=== PATIENT | female | born 1995 | race Caucasian/White ===

== ENCOUNTER 2023-09-16 21:21 | Emergency (ER) | payer OTHER, SELFPAY ==
[2023-09-16 21:26] VITALS: BP 106/83
--- NOTE | 2023-09-16 21:55 | ED.GENMED ---
History of Present Illness
General
Chief Complaint: Abdominal Pain
Source: patient
Exam Limitations: none
Time Seen by Provider: 09/16/23 21:46
Travel History
Have you had any contact with someone who has COVID-19?: No
Do you have any symptoms of coronavirus? Fever > 100 degrees, chills, cough, shortness of breath, sore throat, loss of taste or smell, muscle aches, or headache?: No
History of Present Illness
History of Present Illness:
27-year-old female presents with gradual onset abdominal pain and now is worse in the right lower abdomen. This started yesterday. There is nausea with vomiting. The pain occasionally radiates to the back. No associated urinary symptoms.
Currently on her menstrual cycle. She does not take any medications. The pain is constant now severe sharp in nature. Feels better to curl up in a ball.
Phy Exam
Physical Exam
Physical Exam:
General: Well-appearing female no acute respiratory distress
HEENT: Normocephalic atraumatic
Heart: Regular rate and rhythm no murmur
Lungs: Clear no wheeze or rales
Abdomen soft tender to the right lower quadrant no guarding rebound normal bowel sounds nondistended no costovertebral angle tenderness
Extremities: No cyanosis or edema
Skin: Warm no rash
Course
Orders/Labs/Results
Orders:
Orders
09/16/23 21:31
Test Result ONCE
09/16/23 21:53
CT Abd/pelvis W Iv Cont Urgent
Comment:
Reason For Exam: rlq pain
09/16/23 21:54
Ketorolac [Toradol] 15 mg IV NOW STA
Ondansetron Injectable [Zofran] 4 mg IV NOW STA
09/16/23 22:00
Complete Blood Count/With Diff Urgent
Comprehensive Metabolic Panel Urgent
HCG, Serum Qualitative Screen Urgent
Comment: .
Lipase Urgent
Urinalysis Reflex To Culture Urgent
Date Specimen was Collected: 09/16/23
Time Specimen was Collected: 21:31
Urine Microscopic Reflex Cult Urgent
09/17/23 00:14
0.9% Sodium Chloride 1000 ml [Nss] 1,000 ml IV BOLUS
CefTRIAXone [Rocephin] 1,000 mg IV NOW STA
Abnormal Lab Results
09/16/23
22:00
WBC 12.6 H 10^3/uL
(4.8-10.8)
RBC 3.99 L 10^6/uL
(4.20-5.40)
Hct 36.5 L %
(37.0-47.0)
MCH 31.6 H pg
(27.0-31.0)
Abs Immat Gran (auto) 0.1 H 10^3/uL
(0-0.05)
Absolute Neuts (auto) 9.9 H 10^3/uL
(1.4-6.5)
Absolute Monos (auto) 1.1 H 10^3/uL
(0.1-0.6)
Immature Gran % 0.9 H %
(0-0.5)
Neutrophils % 78.5 H %
(42.2-75.2)
Lymphocytes % 11.5 L %
(20.5-51.1)
BUN 28 H mg/dl
(7-17)
Creatinine 1.7 H mg/dL
(0.6-1.0)
Urine Albumin (Reflex) 1+ A
(Neg - Trace)
09/16/23 22:00
09/16/23 22:00
Vital Signs
Initial and Last Documented VS:
Initial Vital Signs
Temp Pulse Resp BP Pulse Ox
99.6 F 78 20 106/83 98
09/16/23 21:26 09/16/23 21:26 09/16/23 21:26 09/16/23 21:26 09/16/23 21:26
Last Documented Vital Signs
Temp Pulse Resp BP Pulse Ox
99.6 F 78 20 106/83 98
09/16/23 21:26 09/16/23 21:26 09/16/23 21:26 09/16/23 21:26 09/16/23 21:26
MDM/Problems Addressed
Differential Diagnosis Includes:
Abdominal pain. Consider appendicitis versus renal colic versus constipation. Pain is not sudden severe do not suspect torsion she is currently on her menstrual cycle. Unlikely to be ectopic. test pending. Check labs. CT with IV
contrast Zofran and Toradol ordered
*Critical Care Note
Total Time (30-74mins, 75-104mins- exclusive of procedures): Not Applicable
Update Note
Update Note:
CT reviewed. CT demonstrates bilateral perinephric stranding and urothelial stranding to suggest bilateral pyelonephritis. White blood cell count 12.6. Patient feeling better after Toradol. The appendix was visualized and is normal. The ovaries
were visualized and were normal on the CAT scan. Do not suspect torsion. Plan will be to hydrate IV give her through the IV urine culture pending discharge home on Omnicef return precautions given
ED Attending Note
-
Portions of this chart may have been created with voice recognition software.� Occasional wrong word or��sound alike� substitutions may have occurred due to the inherent limitations of voice recognition software.
Discharge Plan
Departure
Patient Disposition: Home (Routine Discharge)
Date of Disposition: 09/17/23
Time of Disposition: 00:20
Patient with high blood pressure during this ER visit?: No
Discharge Problem:
Pyelonephritis
Instructions: Urinary Tract Infection, Adult ED
Prescriptions:
New
cefdinir 300 mg capsule
300 mg PO BID Qty: 14 0RF
No Action
acetaminophen 325 mg Tablet
650 mg PO Q6H PRN (Reason: mild pain/fever)
Referrals:
Rula العراقي MD [Family Provider] -
Activity Restrictions/Additional Instructions:
Drink plenty of fluids. Use antibiotics as directed. Please return here for fever increasing pain vomiting or other concerning finding. Follow-up with family doctor otherwise for recheck of your kidney function
Interventions
Interventions:
*Risk Screen - Suicide Last Done: 09/16/23 21:26
*General Assessment Last Done: 09/16/23 21:26
*Neglect/Abuse Screening Last Done: 09/16/23 21:26
ED- Fall Risk Assessment Last Done: 09/16/23 21:26
*ED COVID-19 Vaccine History Last Done: 09/16/23 21:26
GU-Oewwce-Qaomltiuve Assessment Last Done: 09/16/23 22:25
Discharge Date and Time
Print Language: GHANAIAN
[2023-09-16] MEDS: TORADOL 15 MG IV (22:01)
[2023-09-16] MEDS: ZOFRAN 4 MG IV (22:01)
[2023-09-16 22:14] LABS: % Basophils 0.4 % (0-2); % Immature Granulocytes 0.9 % (0-0.5); % Lymphocytes 11.5 % (20.5-51.1); % Monocytes 8.7 % (1.7-9.3); % Neutrophils 78.5 % (42.2-75.2); Absolute Basophils 0.1 10^3/uL (0-0.2); Absolute Immature Granulocytes 0.1 10^3/uL (0-0.05); Absolute Lymphocytes 1.5 10^3/uL (1.2-3.4); Absolute Monocytes 1.1 10^3/uL (0.1-0.6); Absolute Neutrophils 9.9 10^3/uL (1.4-6.5); Hematocrit 36.5 % (37.0-47.0); Hemoglobin 12.6 g/dL (12.0-16.0); Mean Corp Hgb Conc. 34.5 g/dL (33.0-37.0); Mean Corpuscular Hgb 31.6 pg (27.0-31.0); Mean Corpuscular Volume 91.5 fL (81.0-99.0); Mean Platelet Volume 10.1 fL (7.4-10.4); Nucleated Red Blood Cells % 0 %; Platelet Count 171 10^3/uL (130-400); Red Blood Cell Count 3.99 10^6/uL (4.20-5.40); Red Cell Dist. Width 11.6 % (11.5-14.5); White Blood Cell Count 12.6 10^3/uL (4.8-10.8)
[2023-09-16 22:15] LABS: Urine Albumin 1+ (Neg - Trace); Urine Bilirubin Negative (Negative); Urine Character Clear (Clear); Urine Color Yellow; Urine Glucose Negative (Negative); Urine Ketone Negative (Negative); Urine Leukocyte Negative (Negative); Urine Nitrite Negative (Negative); Urine Occult Blood Negative (Negative); Urine Urobilinogen Negative (Neg - 1+)
[2023-09-16 22:21] LABS: HCG, Serum Qualitative Screen Negative
[2023-09-16 22:26] LABS: ALT (SGPT) 24 U/L (0-35); AST (SGOT) 24 U/L (14-36); Alkaline Phosphatase 87 U/L (38-126); Blood Urea Nitrogen 28 mg/dl (7-17); Calcium 9.6 mg/dl (8.4-10.2); Carbon Dioxide 26 mmol/L (22-30); Chloride 103 mmol/L (98-107); Glucose 99 mg/dl (70-99); Lipase 59 U/L (23-300); Potassium 4.5 mmol/L (3.5-5.1); Sodium 136 mmol/L (135-145); Total Bilirubin 0.3 mg/dl (0.2-1.3); Total Protein 6.7 g/dl (6.3-8.2); eGFR 42.15
[2023-09-16 22:30] LABS: Urine Mucus Few; Urine Squamous Cell 16-20 /LPF (Few)
[2023-09-16 22:31] LABS: Urine Red Blood Cell 0-2 /HPF (0-2)
[2023-09-17] MEDS: ROCEPHIN 1000 MG IV (00:23)
[2023-09-17] MEDS: NSS 1000 IV (00:23)
[2023-09-17 00:27] VITALS: BP 125/74
== END 2023-09-17 00:50 | disposition home or self-care (01) ==
LOC: EMR 21:21
PROVIDERS: Emergency Medicine; EMERGENCY PHYSICIAN Emergency Medicine; FAMILY PHYSICIAN Family Medicine
DX: N12 Tubulo-interstitial nephritis, not specified as acute or chronic (principal)
CPT/HCPCS: 99284; 96374; 96375; 96360; 74177; 80053; 81003; 81015; 83690; 84703; 85025; Q9967

== ENCOUNTER 2023-09-18 18:47 | Inpatient (IN) | payer OTHER, SELFPAY ==
[2023-09-18 14:46] VITALS: BP 127/107
[2023-09-18 16:40] LABS: % Basophils 0.5 % (0-2); % Immature Granulocytes 1.2 % (0-0.5); % Lymphocytes 10.9 % (20.5-51.1); % Monocytes 6.3 % (1.7-9.3); % Neutrophils 81.1 % (42.2-75.2); Absolute Basophils 0.1 10^3/uL (0-0.2); Absolute Immature Granulocytes 0.1 10^3/uL (0-0.05); Absolute Lymphocytes 1.2 10^3/uL (1.2-3.4); Absolute Monocytes 0.7 10^3/uL (0.1-0.6); Absolute Neutrophils 8.8 10^3/uL (1.4-6.5); Hematocrit 35.7 % (37.0-47.0); Hemoglobin 12.4 g/dL (12.0-16.0); Mean Corp Hgb Conc. 34.7 g/dL (33.0-37.0); Mean Corpuscular Hgb 31.6 pg (27.0-31.0); Mean Corpuscular Volume 90.8 fL (81.0-99.0); Mean Platelet Volume 9.9 fL (7.4-10.4); Nucleated Red Blood Cells % 0 %; Platelet Count 180 10^3/uL (130-400); Red Blood Cell Count 3.93 10^6/uL (4.20-5.40); Red Cell Dist. Width 11.5 % (11.5-14.5); White Blood Cell Count 10.9 10^3/uL (4.8-10.8)
[2023-09-18 16:41] LABS: Urine Albumin Trace (Neg - Trace); Urine Bilirubin Negative (Negative); Urine Character Clear (Clear); Urine Color Yellow; Urine Glucose Negative (Negative); Urine Ketone Negative (Negative); Urine Leukocyte Negative (Negative); Urine Nitrite Negative (Negative); Urine Occult Blood Negative (Negative); Urine Specific Gravity 1.005 (<1.030); Urine Urobilinogen Negative (Neg - 1+)
[2023-09-18 17:12] LABS: ALT (SGPT) 16 U/L (0-35); AST (SGOT) 19 U/L (14-36); Alkaline Phosphatase 77 U/L (38-126); Blood Urea Nitrogen 32 mg/dl (7-17); Calcium 8.8 mg/dl (8.4-10.2); Carbon Dioxide 22 mmol/L (22-30); Chloride 105 mmol/L (98-107); Glucose 98 mg/dl (70-99); Potassium 3.8 mmol/L (3.5-5.1); Sodium 136 mmol/L (135-145); Total Bilirubin 0.6 mg/dl (0.2-1.3); Total Protein 6.9 g/dl (6.3-8.2); eGFR 17.72
[2023-09-18] MEDS: DILAUDID 0.5 MG IV (17:23)
[2023-09-18] MEDS: ZOFRAN 4 MG IV ×2 (17:23→23:34)
[2023-09-18] MEDS: NSS 1000 IV ×2 (17:28→19:43)
--- NOTE | 2023-09-18 17:34 | ED.GENMED ---
History of Present Illness
General
Chief Complaint: Flank Pain
Source: patient
Exam Limitations: none
Time Seen by Provider: 09/18/23 17:13
Nursing documentation reviewed up to this point in time: agreed with
Travel History
Have you had any contact with someone who has COVID-19?: No
Do you have any symptoms of coronavirus? Fever > 100 degrees, chills, cough, shortness of breath, sore throat, loss of taste or smell, muscle aches, or headache?: No
History of Present Illness
History of Present Illness:
Patient to ED with complaint of left flank pain and vomiting. She was seen in ED on 09/15 with report of right lower abdominal pain and flank pain. Reprted nausea but no vomiting. No fever/chills. Labs: WBC 12.6, BUN 28, creat 1.7. Dx with
pyelonephritis as suggested by CT. Given toradol with improvement in pain, and IV rochephin. Discharged home on Omnicef. States pain on right flank has improved but now has severe sharp pain on left with continued lower abd. pain. This AM she
developed vomiting. Unable to eat or drink at this time. Denies fever but reports chills. Brought to ED by mother for eval. Has been treating pain with tylenonl however states she took 2 IBU this afternoon.
Past History
Past History
ED Past Medical History: None
ED Past Surgical History: None
Social History
Tobacco: Non-smoker
Alcohol: None
Drug: None
Review of Systems
Review of Systems
Allergies reviewed?: Yes
All Other Systems: ROS reviewed and negative except as documented in HPI and ROS
Constitutional: Reports chills
EENT: Reports no symptoms
Respiratory: Reports no symptoms
Cardiac: Reports no symptoms
ABD/GI: Reports abdominal pain (lower abd. pain), nausea and vomiting
: Reports flank pain
Musculoskeletal: Reports no symptoms
Skin: Reports no symptoms
Neurological: Reports no symptoms
Psychiatric: Reports no symptoms
Phy Exam
General Physical Exam
General Presentation: moderate distress
General age: appears stated age
General Skin: warm and dry
General Habitus: normal
General Mental: alert
Gastrointestinal Exam
Gastrointestinal Exam: soft, no organomegaly, no pulsatile mass and non distended
Palpation: left upper quadrant: No tenderness, left lower quadrant: Moderate tenderness, right upper quadrant: No tenderness and right lower quadrant: Moderate tenderness
Musculoskeletal Exam
Musculoskeletal Exam: full ROM and neuro vasc intact
Skin Exam
Skin Exam: normal color, warm/dry and no rash
Psychiatric Exam
Psychiatric Exam: normal mood/affect
Course
Orders/Labs/Results
Orders:
Orders
09/18/23 Dinner
Clear Liquid
09/18/23 16:26
Test Result ONCE
09/18/23 16:33
Comprehensive Metabolic Panel Urgent
09/18/23 16:34
Complete Blood Count/With Diff Urgent
HCG, Urine Qualitative Screen Urgent
Date Specimen was Collected: 09/18/23
Time Specimen was Collected: 16:26
Urinalysis Reflex To Culture Urgent
Date Specimen was Collected: 09/18/23
Time Specimen was Collected: 16:26
09/18/23 17:15
Renal Only US [US Renal Only W/O Bladder] Urgent
Comment:
Reason For Exam: KORTNEY
09/18/23 17:20
HYDROmorphone [Dilaudid] 0.5 mg IV NOW STA
Ondansetron Injectable [Zofran] 4 mg IV NOW STA
09/18/23 17:26
0.9% Sodium Chloride 1000 ml [Nss] 1,000 ml IV BOLUS
09/18/23 18:06
Admit/Transfer Patient As Directed
Co-Sign Provider:
Level of Care: Inpatient admission
Assign to:: Medical/Surgical
Physician / Group: hosp
Diagnosis: KORTNEY
Reason for Hospitalization: KORTNEY
Expected length of stay greater than two midnights?: Yes
ELOS- Estimated Length of Stay in days: 2
I certify the patient meets the requirements for IP care: Yes
09/18/23 18:07
Code Status As Directed
Resuscitation Status: Full Code
09/18/23 18:12
NEPHROLOGY CONSULT Routine
Consulting Provider: Harman Marley V.
Was physician already notified: Yes
09/18/23 18:15
Bladder Scan As Directed
Follow Bladder Retention/Intermittent Cath Algorithm?: Yes
PRN if no void in __ hours: 6
Frequency: Per Retention Algorithm
If Bladder Scan Result >: 400
then:: Straight cath
Straight Cath As Directed
Frequency: Per Retention Algorithm
Additional Instructions: straight cath as needed per acute urinary retention algorithm for 24 hrs
Additional Instructions: for bladder scan greater than 400 mL
09/18/23 19:11
0.9% Sodium Chloride 1000 ml [Nss] 1,000 ml IV 125 mls/hr
Acetaminophen [Tylenol] 650 mg PO Q4HPRN PRN
Bisacodyl [Dulcolax] 10 mg RECTAL [id number] PRN
Docusate W/Senna [Senokot-S] 1 tablet PO BIDPRN PRN
Polyethylene Glycol Powder [Miralax] 17 grams PO DAILYPRN PRN
09/18/23 19:11
Activity As Directed
Activity Level: Bathroom Privileges
Intake/ Output As Directed
Frequency: Per unit guidelines
Venous Foot Pumps As Directed
Location: Bilateral feet
Vital Signs As Directed
Frequency: Per unit guidelines
Rx Incentive Spirometry [RESP] Routine
Frequency: q1h while awake
DX Deep Vein Thrombosis Video Routine
09/18/23 20:00
Docusate Sodium [Colace] 100 mg PO BID
09/18/23 21:00
HYDROmorphone [Dilaudid] 0.5 mg IV Q4HPRN PRN
09/18/23 23:00
Ondansetron Injectable [Zofran] 4 mg IV Q6HPRN PRN
09/19/23 06:00
Basic Metabolic Panel IN AM
Complete Blood Count/With Diff IN AM
09/20/23 06:00
Basic Metabolic Panel IN AM
Abnormal Lab Results
09/18/23 09/18/23
16: 16:34
WBC 10.9 H 10^3/uL
(4.8-10.8)
RBC 3.93 L 10^6/uL
(4.20-5.40)
Hct 35.7 L %
(37.0-47.0)
MCH 31.6 H pg
(27.0-31.0)
Abs Immat Gran (auto) 0.1 H 10^3/uL
(0-0.05)
Absolute Neuts (auto) 8.8 H 10^3/uL
(1.4-6.5)
Absolute Monos (auto) 0.7 H 10^3/uL
(0.1-0.6)
Immature Gran % 1.2 H %
(0-0.5)
Neutrophils % 81.1 H %
(42.2-75.2)
Lymphocytes % 10.9 L %
(20.5-51.1)
BUN 32 H mg/dl
(7-17)
Creatinine 3.5 H mg/dL
(0.6-1.0)
09/18/23 16:34
09/18/23 16:33
Vital Signs
Initial and Last Documented VS:
Initial Vital Signs
Temp Pulse Resp BP Pulse Ox
98.7 F 65 18 127/107 96
09/18/23 14:46 09/18/23 14:46 09/18/23 14:46 09/18/23 14:46 09/18/23 14:46
Last Documented Vital Signs
Temp Pulse Resp BP Pulse Ox
99 F 67 17 122/75 95
09/18/23 23:19 09/18/23 23:19 09/18/23 23:19 09/18/23 23:19 09/18/23 23:19
*Radiology
Radiology exam reviewed: radiology read reviewed
*Pulse Oximetry
Patient hypoxic: no
*Critical Care Note
Total Time (30-74mins, 75-104mins- exclusive of procedures): Not Applicable
Update Note
Update Note:
Creat 3.5 (1.7 on 09/15). Renal US normal. WIll admit to hospitalists service for KORTNEY
ED Attending Note
-
Portions of this chart may have been created with voice recognition software.� Occasional wrong word or��sound alike� substitutions may have occurred due to the inherent limitations of voice recognition software.
Discharge Plan
Departure
Patient Disposition: Admit
Date of Disposition: 09/18/23
Time of Disposition: 17:42
Presentation/result/management discussed w/ accepting MD/DO: Hospitalist
Patient with high blood pressure during this ER visit?: No
Condition: Fair
Covid-19: Not Applicable
Discharge Problem:
KORTNEY (acute kidney injury)
Interventions
Interventions:
*Risk Screen - Suicide Last Done: 09/18/23 16:21
*General Assessment Last Done: 09/18/23 16:21
*Neglect/Abuse Screening Last Done: 09/18/23 16:21
*ED COVID-19 Vaccine History Last Done: 09/18/23 16:21
*Nursing Disposition Last Done: 09/18/23 19:18
AB-Mnmewu-Dacciqcnak Assessment Last Done: 09/18/23 16:37
ED-Female Genitourinary Assessment Last Done: 09/18/23 16:37
Discharge Date and Time
Discharge Date/Time: 09/18/23 19:19
[2023-09-18 17:35] VITALS: BP 124/83
[2023-09-18 17:36] LABS: HCG, Urine Qualitative Screen Negative
--- NOTE | 2023-09-18 18:15 | HPS.HSE ---
Family Physician
-
Family Physician: Rula العراقي
Chief Complaint
-
Worsening abdominal pain now to the left side
History of Present Illness
27-year-old female without significant medical history was seen 2 days ago at this facility with right lower abdominal pain and flank pain with CT imaging at that time suggestive of some stranding on that right kidney and sent home with suspected
pyelonephritis on course of cefdinir after given course of IV Rocephin and Toradol. She actually stated that her right flank pain improved yesterday but then developed severe sharp left sided lower quadrant pain and vomiting this morning unable to
keep anything down. Denies a febrile course throughout the course of course of presentation even prior to 2 days ago. Only other medication taken has been acetaminophen and took 2 ibuprofen also this afternoon. She vapes tobacco on a daily basis
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 No familial history of any consequence other than possibly in the mother having nephrolithiasis./In addition to CT imaging done 2 days ago she had a renal ultrasound
that is pending analysis today.
Medical History
Past Medical History
Past Medical History: Reports None
Past Surgical History: Reports None
Social History
Tobacco: Vaping (Tobacco)
Alcohol: None
Drug: None
Personal: Single
Living: Alone
Employment: Employed
Family History
Family History: Other (Nephrolithiasis and mother)
Allergies / Home Medications
Allergies reflects when Allergies were last updated in [facility].
Home Medications with original date entered in [employer]
Allergy/Medication List:
Allergies
Allergy/AdvReac Type Severity Reaction Status Date / Time
No Known Allergies Allergy Verified 09/16/23 21:25
Home Medications
acetaminophen 325 mg tablet 650 mg PO Q6H PRN mild pain/fever 09/16/23
cefdinir 300 mg capsule 300 mg PO BID #14 caps 09/17/23
Review of Systems
-
Constitutional: Reports See HPI
EENT: Reports See HPI
Cardiac: Reports See HPI
Abdomen/GI: Reports Abdominal Pain (Now mostly left lower quadrant pain)
: Reports Flank Pain
Physical Exam
Vital Signs
Vital Signs
Temp Pulse Resp BP Pulse Ox
98.7 F 67 18 124/83 98
09/18/23 14:46 09/18/23 17:35 09/18/23 17:35 09/18/23 17:35 09/18/23 17:35
Physical Exam
General: Well Developed
HEENT: NormoCephalic
Respiratory: Clear
Cardiac: S1/S2 and Regular Rhythm
GI: Tender (Left lower quadrant no guarding or rebound)
Neuro: Awake, Alert, Oriented, AO x 3 and No Motor Deficits
Psych: Calm
Laboratory Results
-
09/18/23 16:34
09/18/23 16:33
Laboratory Results
Total Bilirubin 0.6 mg/dl (0.2-1.3) 09/18/23 16:33
AST 19 U/L (14-36) 09/18/23 16:33
ALT 16 U/L (0-35) 09/18/23 16:33
Alkaline Phosphatase 77 U/L (38-126) 09/18/23 16:33
Data Reviewed
-
Critical Care Time (in minutes): 56
CT Scan: Report Reviewed by me (Reported CT imaging of the abdomen showing stranding on the right kidney mild no other abnormalities from September 15 reviewed)
Lab Data: Labs Reviewed by me (Prior leukocytosis of 12,002 days ago now down to 10,000/creatinine has risen from 1.7-3.5/urinalysis is clear/urine hCG negative)
Impression/Plan
-
IMPRESSION:
27-year-old female without significant medical history was seen 2 days ago at this facility with right lower abdominal pain and flank pain with CT imaging at that time suggestive of some stranding on that right kidney and sent home with suspected
pyelonephritis on course of cefdinir after given course of IV Rocephin and Toradol. She actually stated that her right flank pain improved yesterday but then developed severe sharp left sided lower quadrant pain and vomiting this morning unable to
keep anything down. Denies a febrile course throughout the course of course of presentation even prior to 2 days ago. Only other medication taken has been acetaminophen and took 2 ibuprofen also this afternoon. She vapes tobacco on a daily basis
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 No familial history of any consequence other than possibly in the mother having nephrolithiasis./In addition to CT imaging done 2 days ago she had a renal ultrasound
that is pending analysis today.
CT of the abdomen pelvis with IV contrast given on September 15:1. Very mild fat stranding adjacent to the right kidney and urinary bladder. Please correlate with urinalysis to exclude ascending urinary tract infection.
2. No evidence of appendicitis, intestinal obstruction, bowel inflammatory process, nephrolithiasis, hydronephrosis, cholecystitis, or abscess formation.
Abdominal pain
-Involved from right flank pain 2 days ago to left lower quadrant
-No guarding or rebound
-Constipation?
-Obstructive uropathy await renal ultrasound results
Acute kidney injury/AGNIESZKA ?
-Nothing obvious and urinalysis
-Consider effects of contrast nephropathy after CT imaging 2 days ago
-Also NSAID usage since
-IV fluids
-Monitor for obstructive nephropathy or uropathy/nothing obvious on exam
-Await results of renal ultrasound
-Bladder scan protocol
-Consult nephrology w
Suspected pyelonephritis
-Urine on both occasions 2 days ago and now not impressive
-Would hold off on further antibiotics at this point
-No significant leukocytosis and urinalysis clear
-
Admit to MedSurg
Low risk for pharmacologic DVT prophylaxis/venous pumps only
Full CODE STATUS
[2023-09-18 19:15] VITALS: BP 124/78; BMI 33.7
[2023-09-18] MEDS: COLACE 100 MG PO (19:44)
[2023-09-18] MEDS: TYLENOL 650 MG PO (19:44)
--- NOTE | 2023-09-18 19:45 | PTCARENOTE ---
Received patient from ED via stretcher. Patient ambulated from stretcher to bed independently. AAOx3, c/o 4/10 pain to lower abdomen radiating to back. Oriented patient to room and call hitchcock placed within reach.
[2023-09-18 23:19] VITALS: BP 122/75
[2023-09-18] MEDS: DILAUDID 0.25 MG IV (23:33)
[2023-09-19] MEDS: NSS 1000 IV ×3 (03:47→20:16)
[2023-09-19 05:35] LABS: % Basophils 0.4 % (0-2); % Immature Granulocytes 0.9 % (0-0.5); % Lymphocytes 18.8 % (20.5-51.1); % Monocytes 7.3 % (1.7-9.3); % Neutrophils 72.6 % (42.2-75.2); Absolute Immature Granulocytes 0.1 10^3/uL (0-0.05); Absolute Lymphocytes 1.8 10^3/uL (1.2-3.4); Absolute Monocytes 0.7 10^3/uL (0.1-0.6); Absolute Neutrophils 7.1 10^3/uL (1.4-6.5); Hematocrit 33.1 % (37.0-47.0); Hemoglobin 11.6 g/dL (12.0-16.0); Mean Corpuscular Hgb 31.4 pg (27.0-31.0); Mean Corpuscular Volume 89.7 fL (81.0-99.0); Mean Platelet Volume 10.2 fL (7.4-10.4); Nucleated Red Blood Cells % 0 %; Platelet Count 172 10^3/uL (130-400); Red Blood Cell Count 3.69 10^6/uL (4.20-5.40); Red Cell Dist. Width 11.7 % (11.5-14.5); White Blood Cell Count 9.8 10^3/uL (4.8-10.8)
[2023-09-19 05:56] LABS: Blood Urea Nitrogen 30 mg/dl (7-17); Calcium 7.7 mg/dl (8.4-10.2); Carbon Dioxide 20 mmol/L (22-30); Chloride 108 mmol/L (98-107); Estimated Creatinine Clearance 21 ml/min; Glucose 76 mg/dl (70-99); Sodium 139 mmol/L (135-145); eGFR 16.05
[2023-09-19 06:00] VITALS: BMI 33.6
[2023-09-19 07:41] VITALS: BP 111/71
[2023-09-19] MEDS: ZOFRAN 4 MG IV ×3 (08:06→21:11)
[2023-09-19] MEDS: COLACE 100 MG PO ×2 (08:06→20:15)
[2023-09-19] MEDS: DILAUDID 0.25 MG IV ×3 (08:06→21:09)
--- NOTE | 2023-09-19 09:23 | W.PN.HOSP.TC ---
Today's Communication/Plan
-
Continue IV fluids
Continue to monitor off antibiotics and trend renal numbers
Await nephrology input
Obtain flatplate abdomen to assess for retained stool
Assessment / Plan
Assessment / Plan
27-year-old female without significant medical history was seen 2 days ago at this facility with right lower abdominal pain and flank pain with CT imaging at that time suggestive of some stranding on that right kidney and sent home with suspected
pyelonephritis on course of cefdinir after given course of IV Rocephin and Toradol. She actually stated that her right flank pain improved yesterday but then developed severe sharp left sided lower quadrant pain and vomiting this morning unable to
keep anything down. Denies a febrile course throughout the course of course of presentation even prior to 2 days ago. Only other medication taken has been acetaminophen and took 2 ibuprofen also this afternoon. She vapes tobacco on a daily basis
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 No familial history of any consequence other than possibly in the mother having nephrolithiasis./In addition to CT imaging done 2 days ago she had a renal ultrasound
that is pending analysis today.
CT of the abdomen pelvis with IV contrast given on September 15:1. Very mild fat stranding adjacent to the right kidney and urinary bladder. Please correlate with urinalysis to exclude ascending urinary tract infection.
2. No evidence of appendicitis, intestinal obstruction, bowel inflammatory process, nephrolithiasis, hydronephrosis, cholecystitis, or abscess formation.
Abdominal pain
-Involved from right flank pain 2 days ago and now to left lower quadrant
=-Left lower quadrant pain now resolved
-No guarding or rebound
-Constipation? Check flatplate KUB/bowel regimen
-Reviewed results of the above CT scan and also renal ultrasound normal last night
Acute kidney injury/ANGIESZKA ?
-Nothing obvious and urinalysis
-Consider effects of contrast nephropathy after CT imaging 2 days ago
-Also NSAID usage since
-IV fluids
-Monitor for obstructive nephropathy or uropathy/nothing obvious on exam/bladder scans showed no postvoid residual
-renal ultrasound was normal
-Bladder scan protocol
-Consult nephrology
Suspected pyelonephritis
-Urine on both occasions 2 days ago and now not impressive
-Would hold off on further antibiotics at this point
-No significant leukocytosis and urinalysis clear
-
Admit to MedSurg
Low risk for pharmacologic DVT prophylaxis/venous pumps only
Full CODE STATUS
Anticipated Discharge: Within 24 hours
Subjective/Interval History
-
Date of Service: September 19, 2023
Close abdominal pain both referred to the left lower lobe mostly subcutaneous on the right showed that she had poor she is urinating and had 400 cc out this morning there is no postvoid residual no fever or chills
Objective Data
-
Labs:
Laboratory Results
09/19/23
04:29
WBC 9.8
Hgb 11.6 L
Hct 33.1 L
Plt Count 172
Sodium 139
Potassium 4.0
Chloride 108 H
Carbon Dioxide 20 L
BUN 30 H
Creatinine 3.8 H
Glucose 76
Calcium 7.7 L
Vital Signs:
Vital Signs
Temp Pulse Resp BP Pulse Ox
98 F 72 14 111/71 97
09/19/23 07:41 09/19/23 07:41 09/19/23 07:41 09/19/23 07:41 09/19/23 07:41
I&O
09/18/23 09/19/23 09/20/23
06:59 06:59 06:59
Intake Total 0 / 0
Output Total 400 / 400
Balance 0 / 0 -400 / -400
Review of Systems
-
History Source: Patient
Abdomen/GI: Reports Abdominal Pain (Aching on the right side)
Physical Exam
-
General: Well Developed
HEENT: Normocephalic
Respiratory: Clear to Auscultation
Cardiac: Regular Rhythm
GI: Soft, Nontender and Nondistended
Neuro: Awake
Data Reviewed
-
Total Time Spent with Patient (in minutes): 56
CT Scan: Report Reviewed by me (Results reviewed from September 15)
Labs: Labs Reviewed by me (Creatinine still trending up to 3.5 today)
--- NOTE | 2023-09-19 13:45 | W.CON.NEPH ---
Consultation
-
Date/Time Consultation Requested: 09/18/23 18:12
Date/Time Consultation Performed: 09/19/2023 1:45PM
Requesting Provider: Josué Goetz
Performing Provider: Victoria Kramer
Reason for Consultation: KORTNEY
Medical History
-
Chief Complaint: KORTNEY
History of Present Illness:
Ms. Cash is a 27YOF with no significant PMH who presented to the hospital on Friday for abdominal pain/flank pain and CT imaging at that time was consistent with some stranding of the R kidney and was sent home with a course of cefdinir after
recieving Rocephin/Toradol. She said that her sxs started Friday evening (about 3-4 days into her menstrual cycle). At the time of presentation on Friday, her Cr was elevated to 1.6. She went home and Friday, she still felt poorly. She continued
to take ibuprofen and tylenol. Yesterday, she was unable to keep any food or water down. Her last BM was Friday. Denies lightheadedness, dizziness, joint pain, rashes. Denies fevers but does endorse some chills. No history of UTIs. Is sexually
active. Continues to have dull abdominal pain that radiates to the back. Denies any change in urinary frequency, dysuria, hematuria. Has noticed some debris in urine.
Past Medical History
Past Medical History: None
Past Surgical History: None
Social History
Tobacco: Vaping
Alcohol: Occasional
Drug: None
Personal: Partner
Living: Alone
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
Family History
mother and father with kidney stone history
Allergies / Home Medications
Allergy/AdvReac Type Severity Reaction Status Date / Time
No Known Allergies Allergy Verified 09/16/23 21:25
�Medication �Instructions �Recorded �Confirmed �Type
acetaminophen 325 mg tablet 650 mg PO Q6H PRN mild pain/fever 09/16/23 09/18/23 History
cefdinir 300 mg capsule 300 mg PO BID #14 caps 09/17/23 09/18/23 Rx
Review of Systems
-
History Source: Patient
All other systems: Negative unless noted
Constitutional: Fatigue
Abdomen/GI: Constipated
: Flank Pain
Physical Exam
Vital Signs
Vital Signs
Temp Pulse Resp BP Pulse Ox
98 F 72 14 111/71 97
09/19/23 07:41 09/19/23 07:41 09/19/23 07:41 09/19/23 07:41 09/19/23 07:41
Lab Results
WBC 9.8 10^3/uL (4.8-10.8) 09/19/23 04:29
RBC 3.69 10^6/uL (4.20-5.40) L 09/19/23 04:29
Hgb 11.6 g/dL (12.0-16.0) L 09/19/23 04:29
Hct 33.1 % (37.0-47.0) L 09/19/23 04:29
Plt Count 172 10^3/uL (130-400) 09/19/23 04:29
Sodium 139 mmol/L (135-145) 09/19/23 04:29
Potassium 4.0 mmol/L (3.5-5.1) 09/19/23 04:29
Chloride 108 mmol/L (98-107) H 09/19/23 04:29
Carbon Dioxide 20 mmol/L (22-30) L 09/19/23 04:29
BUN 30 mg/dl (7-17) H 09/19/23 04:29
Creatinine 3.8 mg/dL (0.6-1.0) H 09/19/23 04:29
eGFR 16.05 09/19/23 04:29
Glucose 76 mg/dl (70-99) 09/19/23 04:29
Calcium 7.7 mg/dl (8.4-10.2) L 09/19/23 04:29
Albumin 4.0 g/dl (3.5-5.0) 09/18/23 16:33
Physical Exam
General: AOx3, No Distress and Nontoxic
HEENT: PERRL, EOMI, Anicteric, Conjunctivae Clear, Ear/Nose Intact, Hearing Normal, Oropharynx Clear/Moist, Dentition Intact, Facial Symmetry, Neck Supple, Trachea Midline, No JVD and No Thyromegaly
Respiratory: Clear
Cardiac: S1/S2, Regular Rate/Rhythm and No Edema
Breast: Deferred by me
Abdomen: Soft, Nondistended, Normal Bowel Sounds and Other (with some rebound tenderness bilaterally, no guarding, psoas sign +)
Rectal: Deferred by Provider
Genito-urinary: Other (CVA tenderness)
Musculoskeletal: No Clubbing, No Cyanosis and No Edema
Skin: No Rash, Warm, Dry, No Clubbing and Normal Turgor
Neuro: Nonfocal/Grossly Intact
Hematologic/Lymphatic: No Cervical Lymphadenopathy
Psych: Mood/afflect pleasant and Insight/judgement good
Data Reviewed
-
Radiology: Report Reviewed by me (unremarkable kidney US)
CT Scan: Report Reviewed by me (some fat stranding along R kidney)
Labs: Labs Reviewed by me, Discussed with Physician, Discussed with Patient and Discussed with Family
Old Records: Reviewed
Assessment/Plan
-
Assessment:
KORTNEY
Abd pain
?c/f pyelonephritis
Plan:
KORTNEY
- we are assuming that the patient's baseline Cr is normal, she had a significant KORTNEY on Friday up to 1.6, then even more elevated to 3.5 and now 3.8
- nonoliguric, bland UA, spun urine with no casts, etc.
- most likely contrast induced + NSAIDs + pre-renal? unclear if she passed stone previously. no anatomic causes noted on imaging, WBC improving, no stones identified at the time of imaging, no peripheral eosinophilia
- obtain urine Na (low is consistent with contrast)
- continue gentle fluids
- monitor I/Os
- no further nephrotoxins
[2023-09-19 15:28] LABS: Urine Sodium 29 mmol/L (30-90)
[2023-09-19 15:43] VITALS: BP 116/66
--- NOTE | 2023-09-19 16:15 | VATNOTE ---
asked by PCN ti evaluate pt.s right arm due to swelling. Right IV site in vein with positive blood return. Compared both arms. Only slightly more swollen in right hand and fingers. Pillow given to pt for elevation right arm. PCN updated.
--- NOTE | 2023-09-19 16:25 | CM ---
met with patient at bedside.she lives with her parents in house with 2-3 steps to enter,her bed and bath is in baesment down 12 steps.she amb i and is i with her adl.her pcp is dr carlyle mas and she uses [facility] [address]there have
been no epiisodes of vn or ip rehab.
patient is adm with abd/flank pain/jacob.nephrology following cr level,ivf,xray of abdomen.Plan is dc home with no needs..
[2023-09-19 17:59] LABS: Osmolality Urine 133 mOsm/kg (300-900)
[2023-09-19] MEDS: MIRALAX 17 GRAMS PO (20:31)
[2023-09-19 23:06] VITALS: BP 117/81
[2023-09-20 07:07] LABS: Hematocrit 31.9 % (37.0-47.0); Hemoglobin 11.4 g/dL (12.0-16.0); Mean Corp Hgb Conc. 35.7 g/dL (33.0-37.0); Mean Corpuscular Hgb 31.8 pg (27.0-31.0); Mean Corpuscular Volume 89.1 fL (81.0-99.0); Mean Platelet Volume 10.5 fL (7.4-10.4); Platelet Count 195 10^3/uL (130-400); Red Blood Cell Count 3.58 10^6/uL (4.20-5.40); Red Cell Dist. Width 11.7 % (11.5-14.5); White Blood Cell Count 9.1 10^3/uL (4.8-10.8)
[2023-09-20 07:27] LABS: Blood Urea Nitrogen 26 mg/dl (7-17); Carbon Dioxide 21 mmol/L (22-30); Chloride 112 mmol/L (98-107); Estimated Creatinine Clearance 20 ml/min; Glucose 83 mg/dl (70-99); Potassium 4.1 mmol/L (3.5-5.1); Sodium 141 mmol/L (135-145); eGFR 15.56
[2023-09-20 07:40] VITALS: BP 111/74
[2023-09-20] MEDS: COLACE 100 MG PO ×2 (08:16→19:38)
[2023-09-20] MEDS: TYLENOL 650 MG PO ×2 (08:16→14:08)
[2023-09-20] MEDS: NSS 1000 IV (08:17)
--- NOTE | 2023-09-20 09:35 | W.PN.HOSP.TC ---
Today's Communication/Plan
-
Continue to trend renal status
Continue IV fluid
Advance diet
Renal artery Doppler pending to assess for thrombotic event although not likely
Assessment / Plan
Assessment / Plan
27-year-old female without significant medical history was seen 2 days ago at this facility with right lower abdominal pain and flank pain with CT imaging at that time suggestive of some stranding on that right kidney and sent home with suspected
pyelonephritis on course of cefdinir after given course of IV Rocephin and Toradol. She actually stated that her right flank pain improved yesterday but then developed severe sharp left sided lower quadrant pain and vomiting this morning unable to
keep anything down. Denies a febrile course throughout the course of course of presentation even prior to 2 days ago. Only other medication taken has been acetaminophen and took 2 ibuprofen also this afternoon. She vapes tobacco on a daily basis
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 No familial history of any consequence other than possibly in the mother having nephrolithiasis./In addition to CT imaging done 2 days ago she had a renal ultrasound
that is pending analysis today.
CT of the abdomen pelvis with IV contrast given on September 15:1. Very mild fat stranding adjacent to the right kidney and urinary bladder. Please correlate with urinalysis to exclude ascending urinary tract infection.
2. No evidence of appendicitis, intestinal obstruction, bowel inflammatory process, nephrolithiasis, hydronephrosis, cholecystitis, or abscess formation.
Abdominal pain
-Involved from right flank pain 2 days ago and now to left lower quadrant
=-Left lower quadrant pain now resolved
-No guarding or rebound
-Constipation? Check flatplate KUB/bowel regimen
-Reviewed results of the above CT scan and also renal ultrasound normal last night
Acute kidney injury/AGNIESZKA ?/ATN
-Nothing obvious urinalysis/spun urine was bland
-Consider effects of contrast nephropathy after CT imaging 2 days ago
-Also NSAID usage since
-IV fluids
-Monitor for obstructive nephropathy or uropathy/nothing obvious on exam/bladder scans showed no postvoid residual
-renal ultrasound was normal
-Bladder scan protocol
-Renal artery Doppler pending
-Consult nephrology appreciated
Suspected pyelonephritis(doubt)
-Urine on both occasions 2 days ago and now not impressive
-Would hold off on further antibiotics at this point
-No significant leukocytosis and urinalysis clear
-
Admit to MedSurg
Low risk for pharmacologic DVT prophylaxis/venous pumps only
Full CODE STATUS
Anticipated Discharge: 24 - 48 hours
Subjective/Interval History
-
Date of Service: September 20, 2023
Still some constipation and some mild achy right-sided abdominal pain no troubles in passing urine and tolerating diet
Objective Data
-
Labs:
Laboratory Results
09/20/23
05:06
WBC 9.1
Hgb 11.4 L
Hct 31.9 L
Plt Count 195
Sodium 141
Potassium 4.1
Chloride 112 H
Carbon Dioxide 21 L
BUN 26 H
Creatinine 3.9 H
Glucose 83
Calcium 8.0 L
Vital Signs:
Vital Signs
Temp Pulse Resp BP Pulse Ox
99.1 F 87 16 111/74 96
09/20/23 07:40 09/20/23 07:40 09/20/23 07:40 09/20/23 07:40 09/20/23 07:40
I&O
09/19/23 09/20/23 09/21/23
06:59 06:59 06:59
Intake Total 0 / 0 1959 / 1959
Output Total 400 / 400
Balance 0 / 0 1560 / 1560
Review of Systems
-
History Source: Patient
Constitutional: Reports No Symptoms
EENT: Reports No Symptoms Reported
Respiratory: Reports No Symptoms
Cardiac: Reports No Symptoms
Physical Exam
-
General: Well Developed
HEENT: Normocephalic
Respiratory: Clear to Auscultation
Cardiac: Regular Rhythm
GI: Soft, Nontender, Nondistended and Normal Bowel Sounds
Neuro: Awake and Alert
Data Reviewed
-
Total Time Spent with Patient (in minutes): 56
Labs: Labs Reviewed by me (Creatinine seems to have plateaued at 3.9/urine osmolality is diminished at 133 with a urine sodium is also diminished at 29)
--- NOTE | 2023-09-20 10:45 | W.PN.NEPH.PH ---
Today's Communication / Plan
-
- hopeful that Cr is coming to a peak at 3.9
- stop fluids
Assessment/Plan
-
Assessment:
KORTNEY
Abd pain
?c/f pyelonephritis
Plan:
KORTNEY
- we are assuming that the patient's baseline Cr is normal, she had a significant KORTNEY on Friday up to 1.6, then even more elevated to 3.5 and now 3.9
- nonoliguric, bland UA, spun urine with no casts, etc.
- most likely contrast induced + NSAIDs + pre-renal (urine Na still low after fluids). unclear if she passed stone previously. no anatomic causes noted on imaging, WBC improving, no stones identified at the time of imaging, no peripheral
eosinophilia
- we will hold fluids at this time as pressures are stable and patient making excellent urine
- monitor I/Os
- no further nephrotoxins
-
-
Date of Service: September 20, 2023
CC / HPI / ROS
-
Chief Complaint:
KORTNEY
History of Present Illness:
Cr still trending up to 3.9
Review of Systems:
excellent urine output per patient
Labs
-
Labs:
WBC 9.1 10^3/uL (4.8-10.8) 09/20/23 05:06
RBC 3.58 10^6/uL (4.20-5.40) L 09/20/23 05:06
Hgb 11.4 g/dL (12.0-16.0) L 09/20/23 05:06
Hct 31.9 % (37.0-47.0) L 09/20/23 05:06
Plt Count 195 10^3/uL (130-400) 09/20/23 05:06
Sodium 141 mmol/L (135-145) 09/20/23 05:06
Potassium 4.1 mmol/L (3.5-5.1) 09/20/23 05:06
Chloride 112 mmol/L (98-107) H 09/20/23 05:06
Carbon Dioxide 21 mmol/L (22-30) L 09/20/23 05:06
BUN 26 mg/dl (7-17) H 09/20/23 05:06
Creatinine 3.9 mg/dL (0.6-1.0) H 09/20/23 05:06
eGFR 15.56 09/20/23 05:06
Glucose 83 mg/dl (70-99) 09/20/23 05:06
Calcium 8.0 mg/dl (8.4-10.2) L 09/20/23 05:06
Albumin 4.0 g/dl (3.5-5.0) 09/18/23 16:33
Physical Exam
-
Vital Signs:
Vital Signs
Temp Pulse Resp BP Pulse Ox
99.1 F 87 16 111/74 96
09/20/23 07:40 09/20/23 07:40 09/20/23 07:40 09/20/23 07:40 09/20/23 07:40
Cardiovascular:: Regular rate and rhythm
Respiratory:: Bilateral: CTA
Lung Excursion:: Normal
Abdomen:: Nontender and Soft
Bowel Sounds:: Normal
Extremity Edema:: None: Bilateral:
Ruelas Catheter: No
[2023-09-20 15:34] VITALS: BP 110/91
[2023-09-20] MEDS: ZOFRAN 4 MG IV (21:01)
[2023-09-20] MEDS: DILAUDID 0.25 MG IV (21:01)
[2023-09-20 23:36] VITALS: BP 124/90
[2023-09-21 07:47] LABS: Hematocrit 30.8 % (37.0-47.0); Hemoglobin 10.9 g/dL (12.0-16.0); Mean Corp Hgb Conc. 35.4 g/dL (33.0-37.0); Mean Corpuscular Hgb 31.5 pg (27.0-31.0); Mean Platelet Volume 10.4 fL (7.4-10.4); Platelet Count 188 10^3/uL (130-400); Red Blood Cell Count 3.46 10^6/uL (4.20-5.40); Red Cell Dist. Width 11.8 % (11.5-14.5); White Blood Cell Count 9.8 10^3/uL (4.8-10.8)
[2023-09-21 07:50] VITALS: BP 113/74
[2023-09-21 07:57] VITALS: BP 113/74
[2023-09-21 08:07] LABS: Carbon Dioxide 21 mmol/L (22-30); Estimated Creatinine Clearance 24 ml/min; Potassium 4.5 mmol/L (3.5-5.1); eGFR 19.02
[2023-09-21] MEDS: COLACE 100 MG PO (08:08)
[2023-09-21 08:16] LABS: Blood Urea Nitrogen 25 mg/dl (7-17); Chloride 111 mmol/L (98-107); Glucose 93 mg/dl (70-99); Sodium 142 mmol/L (135-145)
--- NOTE | 2023-09-21 08:50 | W.PN.HOSP.TC ---
Today's Communication/Plan
-
Continue to monitor BMP for further improvement in renal status
Renal artery Doppler pending
Assessment / Plan
Assessment / Plan
27-year-old female without significant medical history was seen 2 days ago at this facility with right lower abdominal pain and flank pain with CT imaging at that time suggestive of some stranding on that right kidney and sent home with suspected
pyelonephritis on course of cefdinir after given course of IV Rocephin and Toradol. She actually stated that her right flank pain improved yesterday but then developed severe sharp left sided lower quadrant pain and vomiting this morning unable to
keep anything down. Denies a febrile course throughout the course of course of presentation even prior to 2 days ago. Only other medication taken has been acetaminophen and took 2 ibuprofen also this afternoon. She vapes tobacco on a daily basis
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 No familial history of any consequence other than possibly in the mother having nephrolithiasis./In addition to CT imaging done 2 days ago she had a renal ultrasound
that is pending analysis today.
CT of the abdomen pelvis with IV contrast given on September 15:1. Very mild fat stranding adjacent to the right kidney and urinary bladder. Please correlate with urinalysis to exclude ascending urinary tract infection.
2. No evidence of appendicitis, intestinal obstruction, bowel inflammatory process, nephrolithiasis, hydronephrosis, cholecystitis, or abscess formation.
Abdominal pain
-Involved from right flank pain 2 days ago and now to left lower quadrant
=-Left lower quadrant pain now resolved
-No guarding or rebound
-Constipation? Check flatplate KUB/bowel regimen
-Reviewed results of the above CT scan and also renal ultrasound normal last night
Acute kidney injury/AGNIESZKA ?/ATN
-Nothing obvious urinalysis/spun urine was bland
-Consider effects of contrast nephropathy after CT imaging 2 days ago
-Also NSAID usage since
-IV fluids now off
-Monitor for obstructive nephropathy or uropathy/nothing obvious on exam/bladder scans showed no postvoid residual
-renal ultrasound was normal
-Bladder scan protocol
-Renal artery Doppler pending
-Creatinine now finally trending down from 3.9 to>> 3.3
-Consult nephrology appreciated
Suspected pyelonephritis(doubt)
-Urine on both occasions 2 days ago and now not impressive
-Would hold off on further antibiotics at this point
-No significant leukocytosis and urinalysis clear
-
Admit to MedSurg
Low risk for pharmacologic DVT prophylaxis/venous pumps only
Full CODE STATUS
Anticipated Discharge: Within 24 hours
Subjective/Interval History
-
Date of Service: September 21, 2023
Symptomatically improved without any further abdominal pain tolerating regular diet off IV fluids has not had a renal artery Doppler is yet
Objective Data
-
Labs:
Laboratory Results
09/21/23
06:22
WBC 9.8
Hgb 10.9 L
Hct 30.8 L
Plt Count 188
Sodium 142
Potassium 4.5
Chloride 111 H
Carbon Dioxide 21 L
BUN 25 H
Creatinine 3.3 H
Glucose 93
Calcium 9.0
Vital Signs:
Vital Signs
Temp Pulse Resp BP Pulse Ox
97.8 F 69 18 113/74 97
09/21/23 07:57 09/21/23 07:57 09/21/23 07:57 09/21/23 07:57 09/21/23 07:57
I&O
09/20/23 09/21/23 09/22/23
06:59 06:59 06:59
Intake Total 1960 / 1960 3220 / 3220
Output Total 400 / 400
Balance 1560 / 1560 3220 / 3220
Review of Systems
-
All other systems: Not reviewed unless documented
Physical Exam
-
General: Well Developed
HEENT: Normocephalic
Respiratory: Clear to Auscultation
Cardiac: Regular Rhythm
GI: Soft
Psych: Calm
Data Reviewed
-
Total Time Spent with Patient (in minutes): 45
Labs: Labs Reviewed by me (Creatinine finally trending down from 3.9-3.3 today)
--- NOTE | 2023-09-21 12:00 | W.PN.NEPH.PH ---
Today's Communication / Plan
-
- continue to trend Cr
- encourage oral intake
Assessment/Plan
-
Assessment:
KORTNEY
Abd pain
?c/f pyelonephritis
Plan:
KORTNEY
- we are assuming that the patient's baseline Cr is normal, she had a significant KORTNEY on Friday up to 1.6, peak at 3.9, now down to 3.3
- nonoliguric, bland UA, spun urine with no casts, etc.
- most likely contrast induced + NSAIDs + pre-renal (urine Na still low after fluids). unclear if she passed stone previously. no anatomic causes noted on imaging, WBC improving, no stones identified at the time of imaging, no peripheral
eosinophilia
- continues to make excellent urine and Cr downtrending which is reassuring
- monitor I/Os
- no further nephrotoxins
-
-
Date of Service: September 21, 2023
CC / HPI / ROS
-
Chief Complaint:
KORTNEY
History of Present Illness:
peak Cr 3.9, now down to 3.3
Review of Systems:
excellent urine output per patient
Labs
-
Labs:
WBC 9.8 10^3/uL (4.8-10.8) 09/21/23 06:22
RBC 3.46 10^6/uL (4.20-5.40) L 09/21/23 06:22
Hgb 10.9 g/dL (12.0-16.0) L 09/21/23 06:22
Hct 30.8 % (37.0-47.0) L 09/21/23 06:22
Plt Count 188 10^3/uL (130-400) 09/21/23 06:22
Sodium 142 mmol/L (135-145) 09/21/23 06:22
Potassium 4.5 mmol/L (3.5-5.1) 09/21/23 06:22
Chloride 111 mmol/L (98-107) H 09/21/23 06:22
Carbon Dioxide 21 mmol/L (22-30) L 09/21/23 06:22
BUN 25 mg/dl (7-17) H 09/21/23 06:22
Creatinine 3.3 mg/dL (0.6-1.0) H 09/21/23 06:22
eGFR 19.02 09/21/23 06:22
Glucose 93 mg/dl (70-99) 09/21/23 06:22
Calcium 9.0 mg/dl (8.4-10.2) 09/21/23 06:22
Albumin 4.0 g/dl (3.5-5.0) 09/18/23 16:33
Physical Exam
-
Vital Signs:
Vital Signs
Temp Pulse Resp BP Pulse Ox
97.8 F 69 18 113/74 97
09/21/23 07:50 09/21/23 07:50 09/21/23 07:50 09/21/23 07:50 09/21/23 07:50
Cardiovascular:: Regular rate and rhythm
Respiratory:: Bilateral: CTA
Lung Excursion:: Normal
Abdomen:: Nontender and Soft
Bowel Sounds:: Normal
Extremity Edema:: None: Bilateral:
Ruelas Catheter: No
[2023-09-21 14:30] VITALS: BP 126/79
[2023-09-21 15:00] VITALS: BP 126/79
[2023-09-21] MEDS: COLACE PO (19:38)
[2023-09-21] MEDS: DILAUDID 0.25 MG IV (21:07)
[2023-09-21] MEDS: ZOFRAN 4 MG IV (21:08)
[2023-09-21 23:42] VITALS: BP 116/74
[2023-09-22 06:09] LABS: Blood Urea Nitrogen 25 mg/dl (7-17); Calcium 9.4 mg/dl (8.4-10.2); Carbon Dioxide 24 mmol/L (22-30); Chloride 107 mmol/L (98-107); Estimated Creatinine Clearance 32 ml/min; Glucose 91 mg/dl (70-99); Potassium 4.1 mmol/L (3.5-5.1); Sodium 141 mmol/L (135-145); eGFR 26.54
[2023-09-22 08:40] VITALS: BP 139/82
[2023-09-22] MEDS: TYLENOL 650 MG PO (08:51)
[2023-09-22] MEDS: COLACE 100 MG PO (08:52)
--- NOTE | 2023-09-22 09:01 | W.PN.HOSP.TC ---
Addendum entered and electronically signed by Hardik Roth MD 09/22/23 11:37:
More than 30 minutes spent in discharge including
Final examination of the patient
Summarizing hospital stay
Instructions for continuing care to all relevant caregivers
Preparation of discharge records, prescriptions, and referral forms
Total time spent (in minutes):42
Original Note:
Today's Communication/Plan
-
dc today vs tomorrow pending Nephrology clearance with plan for repeat BMP outpatient
Assessment / Plan
Assessment / Plan
27-year-old female without significant medical history was seen 2 days ago at this facility with right lower abdominal pain and flank pain with CT imaging at that time suggestive of some stranding on that right kidney and sent home with suspected
pyelonephritis on course of cefdinir after given course of IV Rocephin and Toradol. She actually stated that her right flank pain improved yesterday but then developed severe sharp left sided lower quadrant pain and vomiting this morning unable to
keep anything down. Denies a febrile course throughout the course of course of presentation even prior to 2 days ago. Only other medication taken has been acetaminophen and took 2 ibuprofen also this afternoon. She vapes tobacco on a daily basis
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 No familial history of any consequence other than possibly in the mother having nephrolithiasis./In addition to CT imaging done 2 days ago she had a renal ultrasound
that is pending analysis today.
CT of the abdomen pelvis with IV contrast given on September 15:1. Very mild fat stranding adjacent to the right kidney and urinary bladder. Please correlate with urinalysis to exclude ascending urinary tract infection.
2. No evidence of appendicitis, intestinal obstruction, bowel inflammatory process, nephrolithiasis, hydronephrosis, cholecystitis, or abscess formation.
Assessment:
Abdominal pain
- initially R flank pain, then switched to LLQ
- all resolved now
- had a BM 09/20; no issues with diet tolerance
- no CT finding of anatomical abnormality such as GI pathology or stones
- ? pyelonephritis but UA was negative, no fever/leukocytosis. Observing off Abx.
KORTNEY
- likely multifactorial from AGNIESZKA, ATN, NSAID usage (1 dose in ER of Toradol, denies NSAID use at home)
- s/p IVF
- Cr 2.5, voiding ok
- follow BS/SC protocols
- Renal US and artery US unremarkable
- Nephrology following
- consider DC today if ok with Renal; repeat BMP later this week and PCP f/u in 7 days
DVT ppx: SCDs
Code: Full
Anticipated Discharge: Within 24 hours
Subjective/Interval History
-
Date of Service: September 22, 2023
denies any new complaints
pain improving, no dysuria or fevers etc
Cr 2.5 today, voiding ok
Objective Data
-
Labs:
Laboratory Results
09/22/23
04:26
Sodium 141
Potassium 4.1
Chloride 107
Carbon Dioxide 24
BUN 25 H
Creatinine 2.5 H
Glucose 91
Calcium 9.4
Vital Signs:
Vital Signs
Temp Pulse Resp BP Pulse Ox
97.3 F 60 16 139/82 99
09/22/23 08:40 09/22/23 08:40 09/22/23 08:40 09/22/23 08:40 09/22/23 08:40
I&O
09/21/23 09/22/23 09/23/23
06:59 06:59 06:59
Intake Total 0 / 3220 1440 / 1440
Balance 0 / 3220 1440 / 1440
Physical Exam
-
General: No Apparent Distress
HEENT: Normocephalic and Atraumatic
Respiratory: Negative Wheezes
Cardiac: Regular Rhythm and S1/S2
GI: Soft
Genito-urinary: No Costovertebral Tender
Musculoskeletal: No Edema
Neuro: AO x 3
Hematologic / Lymphatic: No Lymphadenopathy
Psych: Calm
Data Reviewed
-
Total Time Spent with Patient (in minutes): 42
Labs: Labs Reviewed by me
--- NOTE | 2023-09-22 11:36 | W.DS.TRANS ---
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
-
Discharge Instructions:
Discharge Diagnosis/Procedures KORTNEY
Diet Regular
Activity As tolerated
Blood Work repeat BMP later this week - results to PCP -
script given
Instructions:
Stand-Alone Forms:
Changes to Home Medications: Yes
Discharge Medications:
DC Medications w/original date entered in [facility]
acetaminophen 325 mg tablet 650 mg PO Q6H PRN mild pain/fever 09/16/23
Home Medication Changes
cefdinir stopped
Pending Results: No
Total time spent discharging patient (in min): 42
--- NOTE | 2023-09-22 11:57 | CM ---
Tita is being discharged to home today with her parents home. Outpatient blood work to be done later this week.
No other needs identified.
PCP-Rula العراقي [phone]
Pharmacy - [facility] -
[2023-09-22 12:00] VITALS: BP 126/75
--- NOTE | 2023-09-22 12:29 | W.PN.NEPH.PH ---
Today's Communication / Plan
-
dc
Assessment/Plan
-
Assessment:
KORTNEY
Abd pain
?c/f pyelonephritis
Plan:
No obvious cause of flank pain and acute kidney failure found
Follow BMP with repeat labs on Friday or this week. She may require additional lab work next week as well
No additional workup for KORTNEY required unless creatinine stalls
Okay for discharge from renal perspective
-
-
Date of Service: September 22, 2023
CC / HPI / ROS
-
Chief Complaint:
KORTNEY
History of Present Illness:
peak Cr 3.9, now down to 2.5
BP stable
no further flank pain
Review of Systems:
excellent urine output per patient
Labs
-
Labs:
WBC 9.8 10^3/uL (4.8-10.8) 09/21/23 06:22
RBC 3.46 10^6/uL (4.20-5.40) L 09/21/23 06:22
Hgb 10.9 g/dL (12.0-16.0) L 09/21/23 06:22
Hct 30.8 % (37.0-47.0) L 09/21/23 06:22
Plt Count 188 10^3/uL (130-400) 09/21/23 06:22
Sodium 141 mmol/L (135-145) 09/22/23 04:26
Potassium 4.1 mmol/L (3.5-5.1) 09/22/23 04:26
Chloride 107 mmol/L (98-107) 09/22/23 04:26
Carbon Dioxide 24 mmol/L (22-30) 09/22/23 04:26
BUN 25 mg/dl (7-17) H 09/22/23 04:26
Creatinine 2.5 mg/dL (0.6-1.0) H 09/22/23 04:26
eGFR 26.54 09/22/23 04:26
Glucose 91 mg/dl (70-99) 09/22/23 04:26
Calcium 9.4 mg/dl (8.4-10.2) 09/22/23 04:26
Albumin 4.0 g/dl (3.5-5.0) 09/18/23 16:33
Physical Exam
-
Vital Signs:
Vital Signs
Temp Pulse Resp BP Pulse Ox
98.9 F 54 16 126/75 99
09/22/23 12:00 09/22/23 12:00 09/22/23 12:00 09/22/23 12:00 09/22/23 12:00
Cardiovascular:: Regular rate and rhythm
Respiratory:: Bilateral: Coarse
Lung Excursion:: Normal
Abdomen:: Nontender and Soft
Bowel Sounds:: Normal
Extremity Edema:: None: Bilateral:
== END 2023-09-22 12:19 | disposition home or self-care (01) | DRG 684 ==
LOC: 4 EAST ACU 18:47
PROVIDERS: ADMITTING PHYSICIAN Internal Medicine; ATTENDING PHYSICIAN Internal Medicine; EMERGENCY PHYSICIAN Emergency Medicine; FAMILY PHYSICIAN Family Medicine; OTHER PHYSICIAN Student in an Organized Health Care Education/Training Program
DX: N17.0 Acute kidney failure with tubular necrosis (principal); F17.290 Nicotine dependence, other tobacco product, uncomplicated; N13.9 Obstructive and reflux uropathy, unspecified
CPT/HCPCS: 76775; 80048; 80053; 81003; 81025; 83935; 84300; 85025; 85027; 93975; 96361; 96374; 96375; 99285